=== PATIENT | male | born 1980 | race American Indian/Alaskan Native ===

== ENCOUNTER 2017-01-12 23:04 | Emergency (ER) | payer MEDICAID ==
[2017-01-12 23:17] VITALS: BP 126/79; PULSE 86; RESP 20; TEMP 97.9; O2SAT 97
[2017-01-12] MEDS ORDERED: Amoxicillin-Clav 875-125 mg Tab PO STA (23:25)
[2017-01-12] MEDS ORDERED: Bacitracin 500 Units/gm Oint Foilpak UD TOP ONE (23:28)
[2017-01-12] MEDS ORDERED: Amoxicillin-Clav 875-125 mg Tab PO ONE (23:30)
[2017-01-12] MEDS ORDERED: Bacitracin 500 Units/gm Oint Foilpak UD ONE (23:30)
--- NOTE | 2017-01-12 23:40 | C.PDOC ---
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 Patient states pet is up to date with vaccinations and he is also current with Tetanus. Patient denies fever, numbness, weakness, or nausea, vomiting. Time Seen by Provider: 01/12/17 23:18 Chief Complaint (Nursing): Bite History Per: Patient History/Exam Limitations: no limitations Onset/Duration Of Symptoms: Mins (45 minutes prior to arrival) Current Symptoms Are (Timing): Still Present Location Of Injury: Left: Arm (and left thumb) Quality Of Symptoms: Painful Severity: Mild Pain Scale Rating Of: 3 Recent travel outside of the [place] States: No - Animal Bite Description Of The Attack: Other (family pets fighting) Description Of The Animal: Family Pet Reports Animal Appears: Well Reports Animal's Immunization Status: UTD Past Medical History Reviewed: Historical Data, Nursing Documentation, Vital Signs Vital Signs: Last Vital Signs Temp 97.9 F 01/12/17 23:15 Pulse 86 01/12/17 23:15 Resp 20 01/12/17 23:15 BP 126/79 01/12/17 23:15 Pulse Ox 97 01/13/17 00:00 - Medical History PMH: Depression, Gastritis, Post Traumatic Stress Disorder - [facility] Procedures ESOPHAGOGASTRODUODENOSCOPY [EGD] W/CLOSED BIOPSY (04/19/14) INDIVID PSYCHOTHERAP NEC (11/12/14) INJECT/INFUSE NEC (06/11/14) OTHER GROUP THERAPY (11/12/14) PSYCHIAT DRUG THERAP NEC (11/12/14) TETANUS TOXOID ADMINIST (07/16/14) Family History: States: Unknown Family Hx - Social History Hx Tobacco Use: Yes Hx Alcohol Use: Yes Hx Substance Use: No - Immunization History Hx Tetanus Toxoid Vaccination: No Hx Influenza Vaccination: No Hx Pneumococcal Vaccination: No Review Of Systems Except As Marked, All Systems Reviewed And Found Negative. Constitutional: Negative for: Fever Gastrointestinal: Negative for: Nausea, Vomiting Skin: Positive for: Other (scratches to left arm; cat bite to left thumb) Neurological: Negative for: Weakness, Numbness Physical Exam - Physical Exam Appears: Non-toxic, No Acute Distress Skin: Warm, Dry, Other (superficial excoriation to right dorsal wrist and 2-3rd digits. Left 1st digit with puncture wound from bite, no active bleeding ) Head: Atraumatic, Normacephalic, Abrasion (right forehead above eyebrow) Eye(s): bilateral: Normal Inspection, EOMI Nose: Normal Neck: Normal ROM, Supple Chest: Symmetrical Extremity: Normal ROM, Capillary Refill (<2 seconds), No Deformity, No Swelling Neurological/Psych: Oriented x3, Normal Speech Gait: Steady ED Course And Treatment O2 Sat by Pulse Oximetry: 97 (room air) Pulse Ox Interpretation: Normal Medical Decision Making Medical Decision Making: Impression: 36 y/o male with scratch and bite from pet cat Plan: * Augmentin * Bacitracin Progress: Patient with scratch and bite from his pet cat. Wounds were thoroughly cleansed and irrigated with NS and betadyne. No deep structure involvement. Bacitracin and sterile dressing applied. Patient treated with Augmentin. Discuss with patient signs of infection and to keep close eye on wounds. Recommend wound check in 2 days Disposition Counseled Patient/Family Regarding: Diagnosis, Need For Followup, Rx Given - Disposition Disposition: HOME/ ROUTINE Disposition Time: 23:37 Condition: STABLE Additional Instructions: Take antibiotic twice a day. Keep wounds clean and dry. May wash gently with soap and water. Change dressing 1-2 times daily. Return to ER if fever occurs, redness or swelling around wound, pus in the wound. Prescriptions: Amoxicillin/Clavulanate [Augmentin 875 MG-125 MG] 1 tab PO BID #14 tab Instructions: Animal Bite (ED) - POA Present On Arrival: None - Clinical Impression Clinical Impression: Cat scratch, Cat bite - PA / DISTRICT SALES COORDINATOR / Resident Statement MD/DO has reviewed & agrees with the documentation as recorded. - Scribe Statement The provider has reviewed the documentation as recorded by the Scribe Rachana Ramires All medical record entries made by the Scribe were at my direction and personally dictated by me. I have reviewed the chart and agree that the record accurately reflects my personal performance of the history, physical exam, medical decision making, and the department course for this patient. I have also personally directed, reviewed, and agree with the discharge instructions and disposition.
== END 2017-01-12 23:40 | disposition home or self-care (01) ==
LOC: C.ER 23:04
DX: S60.812A Abrasion of left wrist, initial encounter (principal); S61.032A Puncture wound without foreign body of left thumb without damage to nail, initial encounter; W55.03XA Scratched by cat, initial encounter; Y93.89 Activity, other specified; Y92.009 Unspecified place in unspecified non-institutional (private) residence as the place of occurrence of the external cause

== ENCOUNTER 2017-11-24 01:31 | Inpatient (IN) | payer MEDICAID ==
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
[2017-11-24 03:23] LABS: HEMOGLOBIN 16.6 g/dL (12.0-18.0); NEUT # 9.1 K/uL (1.8-7.0); NRBC % 0.1 % (0.0-2.0)
[2017-11-24 03:30] LABS: ALBUMIN 4.5 g/dL (3.5-5.0); ALT/SGPT 33 U/L (21-72); AST/SGOT 27 U/L (17-59); BLOOD UREA NITROGEN 8 mg/dL (9-20); CALCIUM 9.1 mg/dl (8.6-10.4); GFR AFRICAN-AMERICAN > 60; GFR NON-AFRICAN AMERICAN > 60
[2017-11-24 03:34] LABS: BARBITURATES, UR NEGATIVE (NEGATIVE); BENZODIAZEPINES, UR NEGATIVE (NEGATIVE); OPIATES, UR NEGATIVE (NEGATIVE); PHENCYCLIDINE, UR NEGATIVE (NEGATIVE)
[2017-11-24 03:44] LABS: URINE BILIRUBIN NEGATIVE (NEGATIVE); URINE BLOOD NEGATIVE (NEGATIVE); URINE CLARITY Clear (Clear); URINE COLOR Straw (YELLOW); URINE GLUCOSE (UA) NORMAL (Normal); URINE LEUKOCYTE ESTERASE NEG Leu/uL (Negative); URINE PROTEIN NEGATIVE (NEGATIVE); URINE UROBILINOGEN NORMAL mg/dL (0.2-1.0)
[2017-11-24 03:45] LABS: BASO % 0.3 % (0.0-2.0); EOS % 0.1 % (0.0-4.0); LYMPH % 16.8 % (20.0-40.0); MEAN CELL VOLUME 92.3 fL (80.0-94.0); MEAN CORPUSCULAR HEMOGLOBIN 31.9 pg (27.0-31.0); MEAN CORPUSCULAR HGB CONC 34.6 g/dL (33.0-37.0); MEAN PLATELET VOLUME 8.1 fL (7.2-11.7); MONO % 8.3 % (0.0-10.0); NEUT % 74.5 % (50.0-75.0); RBC 5.21 Mil/uL (4.40-5.90); RED CELL DISTRIBUTION WIDTH 12.9 % (11.5-14.5); WHITE BLOOD COUNT 12.2 K/uL (4.8-10.8)
[2017-11-24 03:51] LABS: ACETAMINOPHEN < 10.0 ug/mL (10.0-30.0); SALICYLATE < 1.0 mg/dL 1
--- NOTE | 2017-11-24 05:24 | PCM.BM ---
<Angeline Babb - Last Filed: 11/24/17 05:21> Treatment Plan Problems - Problems identified on initial assessmt Depression Date Initiated: 11/24/17 Time Initiated: 05:22 Assessment reference: NA Status: Active suicidal thought Date Initiated: 11/24/17 Time Initiated: 05:24 Assessment reference: NA Status: Active Treatment assets and liabiliti Patient Assests: cooperative, educated, motivated, ADL independent, physically healthy, good support system, cognitively intact, good interpersonal skills Patient Liabilities: relationship conflicts - Milieu Protocol Maintain good personal hygiene: daily Encourage regular showers, daily Remind patient to perform daily oral care, daily Assist patient to perform ADL's Conduct patient checks and document Observation sheet: Q15 minutes Maintain personal safety: every shift Educate patient to report safety concerns to staff, every shift Monitor environment for contraband/sharps Medication safety: Monitor for expected outcome, potential side effects: every shift, Assess barriers to learning: every shift, Assess readiness for medication education: every shift <Estephania Gordon - Last Filed: 11/27/17 09:57> Family Contact Family involvement: Patient does not wish Family/SO involvement Family contact: Patient declines to allow family contact at present - Goals for Treatment Patient goals for treatment: "I want to go to an outpatient program." Discharge/Continuing Care - Education Needs Education Needs: Patient Medication, Patient Coping Skills, Patient Anger Management skills, Patient Placement options, Patient Community resources, Patient Aftercare Safety Plan - Discharge Discharge Criteria: Free of Suicidal thoughts, Free of agitation, Reduction of target symptoms Discharge to:: Home - Treatment Team Participation Discussed with Family/SO: No Was Patient/Family/SO present at Treatment Team Meeting: Yes <Rachel Rivera - Last Filed: 11/29/17 11:04> - Diagnosis (1) Schizo affective schizophrenia Status: Acute Interventions: 11/29/17 11:04 * Assess/adjust medications daily and /or as needed * See patient on an individual basis 7x/week to assess status of hallucinations * Discuss risks, benefits, side effects and alternatives of medications * <Lisa Juan - Last Filed: 11/29/17 11:11> Family Contact Family involvement: Family/SO is involved Family contact: Patient declines to allow family contact at present - Goals for Treatment Patient goals for treatment: "I want to get well." Discharge/Continuing Care - Education Needs Education Needs: Patient Medication, Patient Coping Skills - Discharge Discharge Criteria: Tolerates medication w/o severe side effects, Free of paranoid thoughts, Reduction of target symptoms Discharge to:: Home, With Family - Treatment Team Participation Discussed with Family/SO: No
[2017-11-24 06:34] VITALS: O2SAT 96
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
[2017-11-25] MEDS: Divalproex 250 mg DR Tab PO SCH ×2 (10:04→17:31)
--- NOTE | 2017-11-25 10:07 | PCM.PYCHPN ---
Psychiatric Progress Note - Psychiatric Progress Note Patient seen today, length of contact: 16 min Patient Chief Complaint: I was feeling paranoid.' Problems Identified/Issues Discussed: Patient seen and evaluated, chart reviewed and discussed with the nurse. He reports depressed mood and feelings of hopelessness and helplessness. He still reports paranoid delusions.. Patient remained isolated, confined and withdrawn. Patient is compliant with medications and denies any side effects. Symptoms are improving but need more time to stabilize. Support and psychoeducation given. Medication Change: Yes Medical Record Reviewed: Yes Mental Status Examination - Cognitive Function Orientation: Person, Place, Situation, Time Memory: Intact Attention: WNL Concentration: Poor Association: WNL Fund of Knowledge: Poor - Mood Mood: Depressed, Anxious - Affect Affect: Constricted - Formal Thought Process Formal Thought Process: Hallucinations, Delusions, Paranoia - Suicidal Ideation Suicidal Ideation: No - Homicidal Ideation Homicidal Ideation: No Goal/Treatment Plan - Goal/Treatment Plan Need for Continued Stay: Severe depression anxiety, Severe functional impairment Progress Toward Problem(s) and Goals/Treatment Plan: Bipolar disorder mixed severe with psychotic features R/O Schizoaffective disorder bipolar type -CBT -Psychoeducation -Supportive therapy, group therapy, individual therapy -Risperdal 1 mg by mouth twice a day -Cogentin 1 mg PO BID -Depakote 250 mg PO BID -Trazodone 50 mg by mouth daily at bedtime
[2017-11-26] MEDS: Divalproex 250 mg DR Tab PO SCH (10:01)
[2017-11-26] MEDS: Divalproex 500 mg DR Tab PO SCH (17:18)
--- NOTE | 2017-11-27 01:09 | PCM.PYCHPN ---
Psychiatric Progress Note - Psychiatric Progress Note Patient seen today, length of contact: 16 min Patient Chief Complaint: I am feeling little better.' Problems Identified/Issues Discussed: Patient seen and evaluated, chart reviewed and discussed with the nurse. He reports depressed mood and feelings of hopelessness and helplessness. He still reports paranoid delusions. Patient remained isolated, confined and withdrawn. Patient is compliant with medications and denies any side effects. Symptoms are improving but need more time to stabilize. Support and psychoeducation given. Medication Change: Yes (increase depakote) Medical Record Reviewed: Yes Mental Status Examination - Cognitive Function Orientation: Person, Place, Situation, Time Memory: Intact Attention: WNL Concentration: Poor Association: WNL Fund of Knowledge: Poor - Mood Mood: Depressed, Anxious - Affect Affect: Constricted - Formal Thought Process Formal Thought Process: Hallucinations, Delusions, Paranoia - Suicidal Ideation Suicidal Ideation: No - Homicidal Ideation Homicidal Ideation: No Goal/Treatment Plan - Goal/Treatment Plan Need for Continued Stay: Severe depression anxiety, Severe functional impairment Progress Toward Problem(s) and Goals/Treatment Plan: Bipolar disorder mixed severe with psychotic features R/O Schizoaffective disorder bipolar type -CBT -Psychoeducation -Supportive therapy, group therapy, individual therapy -Sertraline 50 mg -Risperdal 1 mg by mouth twice a day -Cogentin 1 mg PO BID -Depakote 500 mg PO BID -Trazodone 50 mg by mouth daily at bedtime - Smoking Cessation Smoking Cessation Initiated: No
[2017-11-27] MEDS: Divalproex 500 mg DR Tab PO SCH ×2 (09:52→17:06)
[2017-11-27] MEDS ORDERED: Aluminum Hydroxide/Magnesium Hydroxide Susp (30 mL) PO PRN (16:06)
[2017-11-28] MEDS: Divalproex 500 mg DR Tab PO SCH ×2 (09:15→17:11)
--- NOTE | 2017-11-28 20:48 | PCM.PYCHPN ---
Psychiatric Progress Note - Psychiatric Progress Note Patient seen today, length of contact: 16 min Patient Chief Complaint: "Better" Problems Identified/Issues Discussed: The pt is seen, chart reviewed, case discussed with staff. The pt is compliant with medications and reports no side-effects. Symptoms are improving but needs more time to stabilize. After care discussed, support and psychoeducation given. Medication Change: Yes Medical Record Reviewed: Yes Mental Status Examination - Cognitive Function Orientation: Person, Place, Situation, Time Memory: Intact Attention: WNL Concentration: Poor Association: WNL Fund of Knowledge: Poor - Mood Mood: Depressed, Anxious - Affect Affect: Constricted - Formal Thought Process Formal Thought Process: Hallucinations, Delusions, Paranoia - Suicidal Ideation Suicidal Ideation: No - Homicidal Ideation Homicidal Ideation: No Goal/Treatment Plan - Goal/Treatment Plan Need for Continued Stay: Severe depression anxiety, Severe functional impairment Progress Toward Problem(s) and Goals/Treatment Plan: Continue medications Support and psychoeducation daily Attend groups and activities daily After care planning by ANDREW
--- NOTE | 2017-11-29 06:18 | PCM.PYCHPN ---
Psychiatric Progress Note - Psychiatric Progress Note Patient seen today, length of contact: 16 min Patient Chief Complaint: "No change" Problems Identified/Issues Discussed: The pt is seen, chart reviewed, case discussed with staff. Support given, CBT and SC used briefly No new symptoms reported, improving slowly and needs more time No SEs from medications, risks discussed. After care discussed Medication Change: No Medical Record Reviewed: Yes Mental Status Examination - Cognitive Function Orientation: Person, Place, Situation, Time Memory: Intact Attention: WNL Concentration: Poor Association: WNL Fund of Knowledge: Poor - Mood Mood: Depressed, Anxious - Affect Affect: Constricted - Formal Thought Process Formal Thought Process: No Impairment - Suicidal Ideation Suicidal Ideation: No - Homicidal Ideation Homicidal Ideation: No Goal/Treatment Plan - Goal/Treatment Plan Need for Continued Stay: Discharge may exacerbated symptoms, Severe functional impairment Progress Toward Problem(s) and Goals/Treatment Plan: Continue medications Support and psychoeducation daily Attend groups and activities daily After care planning by ANDREW
[2017-11-29] MEDS: Divalproex 500 mg DR Tab PO SCH ×2 (10:05→17:09)
--- NOTE | 2017-11-29 11:03 | PCM.PYCHPN ---
Psychiatric Progress Note - Psychiatric Progress Note Patient seen today, length of contact: 16 min Patient Chief Complaint: I am feeling little better.' Problems Identified/Issues Discussed: Patient seen and evaluated, chart reviewed and discussed with the nurse. He reports depressed mood and feelings of hopelessness and helplessness. He still reports paranoid delusions. Patient remained isolated, confined and withdrawn. Patient is compliant with medications and denies any side effects. Symptoms are improving but need more time to stabilize. Support and psychoeducation given. Medication Change: Yes (increase risperdal) Medical Record Reviewed: Yes Mental Status Examination - Cognitive Function Orientation: Person, Place, Situation, Time Memory: Intact Attention: WNL Concentration: Poor Association: WNL Fund of Knowledge: Poor - Mood Mood: Depressed, Anxious - Affect Affect: Constricted - Formal Thought Process Formal Thought Process: No Impairment - Suicidal Ideation Suicidal Ideation: No - Homicidal Ideation Homicidal Ideation: No Goal/Treatment Plan - Goal/Treatment Plan Need for Continued Stay: Discharge may exacerbated symptoms, Severe functional impairment Progress Toward Problem(s) and Goals/Treatment Plan: Bipolar disorder mixed severe with psychotic features R/O Schizoaffective disorder bipolar type -CBT -Psychoeducation -Supportive therapy, group therapy, individual therapy -Sertraline 50 mg -Risperdal 2 mg by mouth twice a day -Cogentin 1 mg PO BID -Depakote 500 mg PO BID -Trazodone 50 mg by mouth daily at bedtime - Smoking Cessation Smoking Cessation Initiated: No
[2017-11-30] MEDS: Divalproex 500 mg DR Tab PO SCH ×2 (10:18→17:01)
[2017-12-01 06:24] VITALS: BP 120/74; PULSE 63; RESP 18; TEMP 97.9
[2017-12-01] MEDS: Divalproex 500 mg DR Tab PO SCH (10:17)
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
== END 2017-12-01 13:31 | disposition home or self-care (01) | DRG 430 ==
LOC: EDBD 01:31 → C.ER 01:31 → C.5E 04:28
PROVIDERS: ADMIT Psychiatry & Neurology Psychiatry; ATTEND Psychiatry & Neurology Psychiatry
PROC: GZ3ZZZZ Medication Management (ICD-10-PCS; principal; 2017-11-24)
PROC: GZHZZZZ Group Psychotherapy (ICD-10-PCS; 2017-11-24)
PROC: GZ56ZZZ Individual Psychotherapy, Supportive (ICD-10-PCS; 2017-11-24)
DX: F31.64 Bipolar disorder, current episode mixed, severe, with psychotic features (principal); F43.10 Post-traumatic stress disorder, unspecified; F25.9 Schizoaffective disorder, unspecified; R45.851 Suicidal ideations; Z79.899 Other long term (current) drug therapy; Z87.891 Personal history of nicotine dependence; Z91.14 Patient's other noncompliance with medication regimen

== ENCOUNTER 2018-11-24 17:45 | Emergency (ER) | payer MEDICAID ==
[2018-11-24 17:50] VITALS: BMI 24.4
[2018-11-24 17:53] VITALS: RESP 20
--- NOTE | 2018-11-24 18:32 | C.PDOC ---
History Of Present Illness 38 y/o male with no PMHx presents to the ED complaining of a cough for 1 week. Cough is productive of white sputum. Associated with rhinorrhea. Denies any SOB, fever, recent travel, or leg swelling. Additionally patient reports chest pain on the left side which is sharp, and worse with coughing, for the last 3 days. Time Seen by Provider: 11/24/18 18:02 Chief Complaint (Nursing): Cough, Cold, Congestion History Per: Patient History/Exam Limitations: no limitations Onset/Duration Of Symptoms: Days (x 7) Current Symptoms Are (Timing): Still Present Associated Symptoms: Cough, Sputum, Nasal Congestion Past Medical History Reviewed: Historical Data, Nursing Documentation, Vital Signs Vital Signs: Last Vital Signs Temp 98.7 F 11/24/18 17:50 Pulse 110 H 11/24/18 17:50 Resp 20 11/24/18 17:50 BP 166/85 H 11/24/18 17:50 Pulse Ox 97 11/24/18 17:50 - Medical History PMH: Depression, Gastritis, Post Traumatic Stress Disorder Denies: Diabetes, Hepatitis, HIV, HTN, Chronic Kidney Disease, Seizures, Sexually Transmitted Disease Surgical History: Hernia Repair - [facility] Procedures ESOPHAGOGASTRODUODENOSCOPY [EGD] W/CLOSED BIOPSY (04/19/14) GROUP PSYCHOTHERAPY (11/24/17) INDIVID PSYCHOTHERAP NEC (11/12/14) INDIVIDUAL PSYCHOTHERAPY, SUPPORTIVE (11/24/17) INJECT/INFUSE NEC (06/11/14) MEDICATION MANAGEMENT (11/24/17) OTHER GROUP THERAPY (11/12/14) PSYCHIAT DRUG THERAP NEC (11/12/14) TETANUS TOXOID ADMINIST (07/16/14) Family History: States: Unknown Family Hx - Social History Hx Tobacco Use: Yes Hx Alcohol Use: Yes Hx Substance Use: Yes - Immunization History Hx Tetanus Toxoid Vaccination: Yes Hx Influenza Vaccination: No Hx Pneumococcal Vaccination: No Review Of Systems Except As Marked, All Systems Reviewed And Found Negative. Constitutional: Negative for: Fever Respiratory: Negative for: Shortness of Breath Physical Exam - Physical Exam Additional Physical Exam Comments: Constitutional: No acute distress. Head: Normocephalic. Atraumatic. Eyes: PERRL. ENT: Moist mucous membranes. Neck: Supple. Cardiovascular: Regular rate. Radial pulse 2+ bilaterally. Chest: Reproducible tenderness on palpation of left chest wall. Respiratory: Clear to auscultation bilaterally. GI: Soft. Nontender. Nondistended. Back: No CVA tenderness. Musculoskeletal: No tenderness or swelling of extremities. Skin: No rash. Neurologic: Alert, no focal deficit. ED Course And Treatment - Laboratory Results Result Diagrams: 11/24/18 18:51 11/24/18 18:51 O2 Sat by Pulse Oximetry: 97 Pulse Ox Interpretation: Normal Medical Decision Making Medical Decision Making: Plan: - EKG - Chest x-ray - Labs - 30 mg IV Toradol EKG: NSR @ 93 bpm, No ST/T wave changes CXR resulted: Accession No. : [id number] Patient Name / ID : TYRONE ZHAO / [id number] Exam Date : 11/24/2018 18:25:43 ( Approved ) Study Comment : Sex / Age : M / 38Y Creator : Josi Beltrán MD Dictator : Josi Beltrán MD Com Writer : Kit Assembler : Josi Beltrán MD Approver2 : Report Date : 11/24/2018 18:37:53 My Comment : HISTORY: cough COMPARISON: None available. TECHNIQUE: Chest PA and lateral, 2 views FINDINGS: LUNGS: No focal consolidation. Please note that chest x-ray has limited sensitivity for the detection of pulmonary masses. PLEURA: No significant pleural effusion identified. No definite pneumothorax . CARDIOVASCULAR: The cardiomediastinal silhouette appears within normal limits of size. No atherosclerotic calcification present. OSSEOUS STRUCTURES: No acute osseous abnormality identified. VISUALIZED UPPER ABDOMEN: Unremarkable. OTHER FINDINGS: None. IMPRESSION: No focal consolidation. Labs reviewed and discussed with patient. Disposition - Disposition Disposition: HOME/ ROUTINE Disposition Time: 19:35 Condition: GOOD Additional Instructions: Your blood work indicate that you did not have a heart attack and your XR does not show pneumonia. Prescriptions: Benzonatate [Tessalon Perles] 200 mg PO TID #30 sgl Instructions: Upper Respiratory Infection (ED), Costochondritis Forms: [employer] [facility] (Swedish) - Clinical Impression Clinical Impression: Muscle strain, Upper respiratory infection - Scribe Statement The provider has reviewed the documentation as recorded by the Alonzo Mays Provider Attestation: All medical record entries made by the Kenyonibprince were at my direction and personally dictated by me. I have reviewed the chart and agree that the record accurately reflects my personal performance of the history, physical exam, medical decision making, and the department course for this patient. I have also personally directed, reviewed, and agree with the discharge instructions and disposition.
--- NOTE | 2018-11-24 18:41 | RAD ---
HISTORY: cough COMPARISON: None available. TECHNIQUE: Chest PA and lateral, 2 views FINDINGS: LUNGS: No focal consolidation. Please note that chest x-ray has limited sensitivity for the detection of pulmonary masses. PLEURA: No significant pleural effusion identified. No definite pneumothorax . CARDIOVASCULAR: The cardiomediastinal silhouette appears within normal limits of size. No atherosclerotic calcification present. OSSEOUS STRUCTURES: No acute osseous abnormality identified. VISUALIZED UPPER ABDOMEN: Unremarkable. OTHER FINDINGS: None. IMPRESSION: No focal consolidation.
[2018-11-24 18:57] LABS: BASO # 0.1 K/uL (0.0-0.2); BASO % 0.6 % (0.0-2.0); EOS # 0.2 K/uL (0.0-0.7); EOS % 2.1 % (0.0-4.0); HEMOGLOBIN 15.9 g/dL (12.0-18.0); LYMPH # 3.2 K/uL (1.0-4.3); MEAN CORPUSCULAR HEMOGLOBIN 31.5 pg (27.0-31.0); MEAN PLATELET VOLUME 7.6 fL (7.2-11.7); MONO # 0.9 K/uL (0.0-0.8); MONO % 9.5 % (0.0-10.0); NEUT # 4.8 K/uL (1.8-7.0); NEUT % 52.8 % (50.0-75.0); RBC 5.04 Mil/uL (4.40-5.90); RED CELL DISTRIBUTION WIDTH 13.3 % (11.5-14.5); WHITE BLOOD COUNT 9.1 K/uL (4.8-10.8)
[2018-11-24 19:12] LABS: MEAN CELL VOLUME 89.8 fL (80.0-94.0)
[2018-11-24 19:14] LABS: ALB/GLOB RATIO 1.4 (1.0-2.1); ALBUMIN 4.3 g/dL (3.5-5.0); ALT/SGPT 44 U/L (21-72); AST/SGOT 42 U/L (17-59); BLOOD UREA NITROGEN 8 mg/dL (9-20); CALCIUM 9.2 mg/dl (8.6-10.4); GFR NON-AFRICAN AMERICAN > 60
[2018-11-24 19:31] LABS: CK-MB 0.51 ng/mL (0.0-3.38)
[2018-11-24 19:47] VITALS: BP 116/80; PULSE 79; TEMP 98; O2SAT 99
--- NOTE | 2018-11-25 23:29 | CARD ---
APPROVED REPORT Date of service: 11/24/2018 EKG Measurement Heart [id number] <Conclusion> Normal sinus rhythm Right atrial enlargement Borderline ECG
== END 2018-11-24 19:47 | disposition home or self-care (01) ==
LOC: C.ER 17:45
DX: J06.9 Acute upper respiratory infection, unspecified (principal); S29.011A Strain of muscle and tendon of front wall of thorax, initial encounter; X58.XXXA Exposure to other specified factors, initial encounter
CPT/HCPCS: 71046; 80053; 82550; 82553; 84484; 85025; 93005; 96374; 99285; J1885